=== PATIENT | male | born 1945 | race Caucasian/White ===

== ENCOUNTER 2018-04-24 12:30 | Inpatient (IN) | payer MEDICARE, BC ==
[2018-04-24] MEDS: ALBUTEROL SULFATE 2.5 MG/0.5 ML INH NEB SOLN NEB (15:14)
[2018-04-24 15:31] LABS: HEMATOCRIT 54.3 % (42.0-52.0); HEMOGLOBIN 18.8 g/dl (13.5-17.5); MEAN CORPUSCULAR HEMOGLOBIN 31.1 pg (27.0-33.0); MEAN CORPUSCULAR HGB CONC 34.6 g/dl (32.0-36.5); MEAN CORPUSCULAR VOLUME 89.8 fl (80.0-96.0); PLATELET COUNT, AUTOMATED 177 10^3/uL (150-450); RED BLOOD COUNT 6.05 10^6/uL (4.30-6.10); RED CELL DISTRIBUTION WIDTH 14.9 % (11.5-14.5); WHITE BLOOD COUNT 28.7 10^3/uL (4.0-10.0)
[2018-04-24 15:59] LABS: ALBUMIN 4.2 GM/DL (3.2-5.2); ALBUMIN/GLOBULIN RATIO 1.14 (1.00-1.93); ALKALINE PHOSPHATASE 66 U/L (45-117); ALT/SGPT 48 U/L (12-78); ANION GAP 9 MEQ/L (8-16); AST/SGOT 35 U/L (7-37); BILIRUBIN,DIRECT 0.3 MG/DL (0.0-0.2); BILIRUBIN,TOTAL 1.7 MG/DL (0.2-1.0); BLOOD UREA NITROGEN 18 MG/DL (7-18); CALCIUM LEVEL 9.7 MG/DL (8.8-10.2); CARBON DIOXIDE LEVEL 26 MEQ/L (21-32); CHLORIDE LEVEL 106 MEQ/L (98-107); CREATININE FOR GFR 1.87 MG/DL (0.70-1.30); GLOMERULAR FILTRATION RATE 37.8 (>42); GLUCOSE, FASTING 159 MG/DL (70-100); NT-PRO BNP 249 PG/ML (<125); POTASSIUM SERUM 4.2 MEQ/L (3.5-5.1); SODIUM LEVEL 141 MEQ/L (136-145); TOTAL PROTEIN 7.9 GM/DL (6.4-8.2)
[2018-04-24 16:05] LABS: POSITIVE DIFF POS FLAG; SUSPECT SAMPLE POS FLAG
[2018-04-24 16:06] LABS: ADD MANUAL DIFFER YES; DIFF SLIDE NUMBER 347
[2018-04-24 16:09] LABS: ATYPICAL LYMPH 1 % (0-5); BANDS 4 % (< 11); BASOPHILS 2 % (0-4); LYMPHOCYTES 1 % (16-52); MONOCYTES 5 % (0-8); NEUTROPHILS 87 % (35-75); TOXIC VACUOLATION 1+
[2018-04-24 16:11] LABS: PLATELET ESTIMATE NORMAL (NORMAL)
[2018-04-24] MEDS: NS 1,000 ML IV ×3 (16:21→22:31)
[2018-04-24] MEDS: methylPREDNISolone INJ 125 MG/2 ML VIAL (J2930) IV (16:42)
[2018-04-24] MEDS: AZITHROMYCIN INJ 500 MG, VIAL MATE ADAPTER 1 EACH in D5W 250 ML IV (16:42)
[2018-04-24] MEDS: cefTRIAXone SOD 2 GM in D5W MINI-BAG PLUS 50 ML IV (16:42)
[2018-04-24 16:50] LABS: LACTIC ACID SEPSIS PROTOCOL 3.3 MMOL/L (0.4-2.0)
[2018-04-24] MEDS ORDERED: GLUCOSE 4 GM CHEW TABLET PO (17:15)
[2018-04-24] MEDS ORDERED: GLUCAGON FOR INJ 1 MG VIAL (J1610) SC (17:15)
[2018-04-24] MEDS ORDERED: DEXTROSE 50% 50 ML SYRINGE IV (17:15)
[2018-04-24] MEDS ORDERED: ACETAMINOPHEN TAB 650MG DOSE (2X325MG) PO (17:15)
[2018-04-24 17:29] LABS: BEDSIDE GLUCOSE 183 MG/DL (83-110)
[2018-04-24] MEDS: ONDANSETRON 4MG/2ML VIAL (J2405) IV (17:29)
[2018-04-24] MEDS: HumaLOG INSULIN (NovoLOG) PER UNIT SC ×2 (17:34→21:03)
[2018-04-24] MEDS ORDERED: NITROGLYCERIN 0.4 MG SUBL TABLET SL (17:45)
[2018-04-24] MEDS ORDERED: AZITHROMYCIN INJ 500 MG, VIAL MATE ADAPTER 1 EACH in D5W 250 ML IV (18:00)
[2018-04-24] MEDS: ADVAIR HFA 230/21MCG INHALER INH (19:55)
[2018-04-24] MEDS: IPRATROPIUM 0.5MG/ALBUTEROL 2.5MG INH SOL UD 3ML (DUONEB)(J7620) NEB ×2 (19:55→23:43)
[2018-04-24] MEDS: METOCLOPRAMIDE 10 MG TAB PO (21:01)
[2018-04-24] MEDS: ATORVASTATIN 20 MG TAB PO (21:01)
[2018-04-24] MEDS: CETIRIZINE (ZyrTEC) 10 MG TAB PO (21:01)
[2018-04-24] MEDS: EZETIMIBE 10 MG TAB (ZETIA) PO (21:01)
[2018-04-24] MEDS: MULTIVITAMINS/MINERALS THERAP 1 TAB PO (21:02)
[2018-04-24 22:03] LABS: BEDSIDE GLUCOSE 251 MG/DL (83-110)
[2018-04-25 03:23] LABS: LACTIC ACID SEPSIS PROTOCOL 3.5 MMOL/L (0.4-2.0)
[2018-04-25] MEDS: IPRATROPIUM 0.5MG/ALBUTEROL 2.5MG INH SOL UD 3ML (DUONEB)(J7620) NEB ×7 (04:24→23:40)
[2018-04-25 06:09] LABS: HEMATOCRIT 40.6 % (42.0-52.0); MEAN CORPUSCULAR HEMOGLOBIN 30.8 pg (27.0-33.0); MEAN CORPUSCULAR HGB CONC 34.5 g/dl (32.0-36.5); MEAN CORPUSCULAR VOLUME 89.4 fl (80.0-96.0); PLATELET COUNT, AUTOMATED 158 10^3/uL (150-450); RED BLOOD COUNT 4.54 10^6/uL (4.30-6.10); RED CELL DISTRIBUTION WIDTH 14.9 % (11.5-14.5); WHITE BLOOD COUNT 25.6 10^3/uL (4.0-10.0)
[2018-04-25 06:33] LABS: ALBUMIN 2.8 GM/DL (3.2-5.2); ALKALINE PHOSPHATASE 47 U/L (45-117); ALT/SGPT 31 U/L (12-78); ANION GAP 10 MEQ/L (8-16); AST/SGOT 19 U/L (7-37); BILIRUBIN,TOTAL 0.7 MG/DL (0.2-1.0); BLOOD UREA NITROGEN 25 MG/DL (7-18); CALCIUM LEVEL 7.8 MG/DL (8.8-10.2); CARBON DIOXIDE LEVEL 21 MEQ/L (21-32); CHLORIDE LEVEL 111 MEQ/L (98-107); CREATININE FOR GFR 1.54 MG/DL (0.70-1.30); GLOMERULAR FILTRATION RATE 47.2 (>42); GLUCOSE, FASTING 237 MG/DL (70-100); MAGNESIUM LEVEL 1.7 MG/DL (1.8-2.4); POTASSIUM SERUM 4.4 MEQ/L (3.5-5.1); SODIUM LEVEL 142 MEQ/L (136-145); TOTAL PROTEIN 5.9 GM/DL (6.4-8.2)
[2018-04-25] MEDS: ADVAIR HFA 230/21MCG INHALER INH ×2 (07:49→20:25)
[2018-04-25] MEDS: methylPREDNISolone INJ 40 MG/1 ML VIAL (J2920) IV ×3 (08:18→20:23)
[2018-04-25] MEDS: RIVAROXABAN 20 MG TAB (XARELTO) PO (08:18)
[2018-04-25] MEDS: MULTIVITAMINS/MINERALS THERAP 1 TAB PO (08:18)
[2018-04-25] MEDS: EZETIMIBE 10 MG TAB (ZETIA) PO (08:18)
[2018-04-25] MEDS: HumaLOG INSULIN (NovoLOG) PER UNIT SC ×4 (08:20→22:02)
[2018-04-25] MEDS: NS 1,000 ML IV ×2 (08:20→09:13)
[2018-04-25] MEDS: MAG SULF 1GM/100ML (MAG RUN) 1 GM in APPROPRIATE DILUENT 1 EA IV (10:34)
[2018-04-25 11:04] LABS: LACTIC ACID SEPSIS PROTOCOL 4.1 MMOL/L (0.4-2.0)
[2018-04-25 11:33] LABS: BEDSIDE GLUCOSE 250 MG/DL (83-110)
[2018-04-25 14:47] LABS: LACTIC ACID SEPSIS PROTOCOL 4.3 MMOL/L (0.4-2.0)
[2018-04-25] MEDS: MAALOX 30 ML SUSP *UDC PO ×2 (15:01→20:22)
[2018-04-25] MEDS: cefTRIAXone SOD 1 GM in D5W MINI-BAG PLUS 50 ML IV (15:03)
[2018-04-25 16:49] LABS: REASON FOR REVIEW WBC/LEUKEMIA/BLAST; SLIDE REVIEW Report; SOURCE PERIPHERAL SMEAR
[2018-04-25 16:55] LABS: BEDSIDE GLUCOSE 224 MG/DL (83-110)
[2018-04-25] MEDS: AZITHROMYCIN INJ 500 MG, VIAL MATE ADAPTER 1 EACH in D5W 250 ML IV (17:10)
[2018-04-25] MEDS: ONDANSETRON 4MG/2ML VIAL (J2405) IV (18:29)
[2018-04-25] MEDS: FLUTICASONE PROP 0.05% NASAL SPRAY 16 GM (FLONASE) (18:45)
[2018-04-25] MEDS: chlorproMAZINE 25 MG TAB (Q0161) PO (18:46)
[2018-04-25 19:18] LABS: HEMATOCRIT 37.3 % (42.0-52.0); HEMOGLOBIN 12.6 g/dl (13.5-17.5); MEAN CORPUSCULAR HEMOGLOBIN 30.7 pg (27.0-33.0); MEAN CORPUSCULAR HGB CONC 33.8 g/dl (32.0-36.5); MEAN CORPUSCULAR VOLUME 90.8 fl (80.0-96.0); PLATELET COUNT, AUTOMATED 135 10^3/uL (150-450); RED BLOOD COUNT 4.11 10^6/uL (4.30-6.10); RED CELL DISTRIBUTION WIDTH 15.4 % (11.5-14.5); WHITE BLOOD COUNT 23.9 10^3/uL (4.0-10.0)
[2018-04-25 20:07] LABS: C REACTIVE PROTEIN QUANTITATIV 6.36 MG/DL (0.00-0.30)
[2018-04-25] MEDS: CETIRIZINE (ZyrTEC) 10 MG TAB PO (20:22)
[2018-04-25] MEDS: METOCLOPRAMIDE 10 MG TAB PO (20:23)
[2018-04-25] MEDS: ATORVASTATIN 20 MG TAB PO (20:23)
[2018-04-25 21:01] LABS: BEDSIDE GLUCOSE 269 MG/DL (83-110)
[2018-04-25] MEDS: PIPERACILLIN/TAZOBACTAM SOD 3.375 GM in D5W MINI-BAG PLUS 50 ML IV (21:51)
[2018-04-26] MEDS: PIPERACILLIN/TAZOBACTAM SOD 3.375 GM in D5W MINI-BAG PLUS 50 ML IV ×4 (03:10→20:28)
[2018-04-26] MEDS: IPRATROPIUM 0.5MG/ALBUTEROL 2.5MG INH SOL UD 3ML (DUONEB)(J7620) NEB ×5 (03:47→20:28)
[2018-04-26 06:26] LABS: HEMATOCRIT 36.2 % (42.0-52.0); HEMOGLOBIN 12.4 g/dl (13.5-17.5); MEAN CORPUSCULAR HEMOGLOBIN 30.8 pg (27.0-33.0); MEAN CORPUSCULAR HGB CONC 34.3 g/dl (32.0-36.5); PLATELET COUNT, AUTOMATED 141 10^3/uL (150-450); RED BLOOD COUNT 4.02 10^6/uL (4.30-6.10); RED CELL DISTRIBUTION WIDTH 15.3 % (11.5-14.5); WHITE BLOOD COUNT 21.9 10^3/uL (4.0-10.0)
[2018-04-26 06:49] LABS: ALBUMIN 2.8 GM/DL (3.2-5.2); ALBUMIN/GLOBULIN RATIO 0.97 (1.00-1.93); ALKALINE PHOSPHATASE 42 U/L (45-117); ALT/SGPT 27 U/L (12-78); ANION GAP 12 MEQ/L (8-16); AST/SGOT 20 U/L (7-37); BILIRUBIN,TOTAL 0.4 MG/DL (0.2-1.0); BLOOD UREA NITROGEN 30 MG/DL (7-18); CALCIUM LEVEL 8.4 MG/DL (8.8-10.2); CARBON DIOXIDE LEVEL 20 MEQ/L (21-32); CHLORIDE LEVEL 110 MEQ/L (98-107); CREATININE FOR GFR 1.71 MG/DL (0.70-1.30); GLOMERULAR FILTRATION RATE 41.9 (>42); GLUCOSE, FASTING 273 MG/DL (70-100); MAGNESIUM LEVEL 2.3 MG/DL (1.8-2.4); POTASSIUM SERUM 4.4 MEQ/L (3.5-5.1); SODIUM LEVEL 142 MEQ/L (136-145); TOTAL PROTEIN 5.7 GM/DL (6.4-8.2)
[2018-04-26] MEDS: ADVAIR HFA 230/21MCG INHALER INH ×2 (07:11→21:00)
[2018-04-26 08:17] LABS: C REACTIVE PROTEIN QUANTITATIV 3.74 MG/DL (0.00-0.30)
[2018-04-26] MEDS: methylPREDNISolone INJ 40 MG/1 ML VIAL (J2920) IV (08:21)
[2018-04-26] MEDS: MULTIVITAMINS/MINERALS THERAP 1 TAB PO (08:21)
[2018-04-26] MEDS: RIVAROXABAN 20 MG TAB (XARELTO) PO (08:21)
[2018-04-26] MEDS: EZETIMIBE 10 MG TAB (ZETIA) PO (08:21)
[2018-04-26] MEDS: HumaLOG INSULIN (NovoLOG) PER UNIT SC ×4 (08:22→21:00)
[2018-04-26 08:29] LABS: LACTIC ACID SEPSIS PROTOCOL 4.9 MMOL/L (0.4-2.0)
[2018-04-26] MEDS: FLUTICASONE PROP 0.05% NASAL SPRAY 16 GM (FLONASE) (09:49)
[2018-04-26] MEDS: NS 1,000 ML IV ×2 (11:29→20:28)
[2018-04-26 12:07] LABS: BEDSIDE GLUCOSE 281 MG/DL (83-110)
[2018-04-26] MEDS: chlorproMAZINE 25 MG TAB (Q0161) PO (14:01)
[2018-04-26 16:40] LABS: BEDSIDE GLUCOSE 254 MG/DL (83-110)
[2018-04-26] MEDS: MAALOX 30 ML SUSP *UDC PO (20:28)
[2018-04-26] MEDS: CETIRIZINE (ZyrTEC) 10 MG TAB PO (20:29)
[2018-04-26] MEDS: ATORVASTATIN 20 MG TAB PO (20:29)
[2018-04-26] MEDS: METOCLOPRAMIDE 10 MG TAB PO (20:29)
[2018-04-26] MEDS: predniSONE 20 MG TAB PO (20:29)
[2018-04-26 20:34] LABS: BEDSIDE GLUCOSE 221 MG/DL (83-110)
[2018-04-26] MEDS: LEVEMIR (INSULIN DETEMIR) 1 UNITS/0.01ML SC (21:07)
[2018-04-27] MEDS: IPRATROPIUM 0.5MG/ALBUTEROL 2.5MG INH SOL UD 3ML (DUONEB)(J7620) NEB ×7 (00:26→23:18)
[2018-04-27] MEDS: PIPERACILLIN/TAZOBACTAM SOD 3.375 GM in D5W MINI-BAG PLUS 50 ML IV ×2 (03:07→09:03)
[2018-04-27 06:16] LABS: HEMATOCRIT 36.3 % (42.0-52.0); HEMOGLOBIN 12.5 g/dl (13.5-17.5); MEAN CORPUSCULAR HEMOGLOBIN 30.7 pg (27.0-33.0); MEAN CORPUSCULAR HGB CONC 34.4 g/dl (32.0-36.5); MEAN CORPUSCULAR VOLUME 89.2 fl (80.0-96.0); PLATELET COUNT, AUTOMATED 144 10^3/uL (150-450); RED BLOOD COUNT 4.07 10^6/uL (4.30-6.10); RED CELL DISTRIBUTION WIDTH 15.6 % (11.5-14.5)
[2018-04-27 06:28] LABS: ALBUMIN 2.8 GM/DL (3.2-5.2); ALBUMIN/GLOBULIN RATIO 1.04 (1.00-1.93); ALKALINE PHOSPHATASE 41 U/L (45-117); ALT/SGPT 39 U/L (12-78); ANION GAP 6 MEQ/L (8-16); AST/SGOT 26 U/L (7-37); BILIRUBIN,TOTAL 0.6 MG/DL (0.2-1.0); BLOOD UREA NITROGEN 24 MG/DL (7-18); CALCIUM LEVEL 8.5 MG/DL (8.8-10.2); CARBON DIOXIDE LEVEL 25 MEQ/L (21-32); CHLORIDE LEVEL 110 MEQ/L (98-107); CREATININE FOR GFR 1.38 MG/DL (0.70-1.30); GLOMERULAR FILTRATION RATE 53.6 (>42); GLUCOSE, FASTING 205 MG/DL (70-100); MAGNESIUM LEVEL 2.1 MG/DL (1.8-2.4); POTASSIUM SERUM 4.4 MEQ/L (3.5-5.1); SODIUM LEVEL 141 MEQ/L (136-145); TOTAL PROTEIN 5.5 GM/DL (6.4-8.2)
[2018-04-27] MEDS: ADVAIR HFA 230/21MCG INHALER INH ×2 (07:39→19:25)
[2018-04-27] MEDS: RIVAROXABAN 20 MG TAB (XARELTO) PO (09:03)
[2018-04-27] MEDS: MULTIVITAMINS/MINERALS THERAP 1 TAB PO (09:03)
[2018-04-27] MEDS: EZETIMIBE 10 MG TAB (ZETIA) PO (09:03)
[2018-04-27] MEDS: predniSONE 20 MG TAB PO (09:03)
[2018-04-27] MEDS: HumaLOG INSULIN (NovoLOG) PER UNIT SC ×4 (09:04→21:00)
[2018-04-27 11:56] LABS: BEDSIDE GLUCOSE 209 MG/DL (83-110)
[2018-04-27 17:02] LABS: BEDSIDE GLUCOSE 226 MG/DL (83-110)
[2018-04-27] MEDS: LevoFLOXacin 500 MG TABLET PO (17:52)
[2018-04-27 20:54] LABS: BEDSIDE GLUCOSE 180 MG/DL (83-110)
[2018-04-27] MEDS: ATORVASTATIN 20 MG TAB PO (21:21)
[2018-04-27] MEDS: LEVEMIR (INSULIN DETEMIR) 1 UNITS/0.01ML SC (21:22)
[2018-04-27] MEDS: CETIRIZINE (ZyrTEC) 10 MG TAB PO (21:23)
[2018-04-27] MEDS: ONDANSETRON 4MG/2ML VIAL (J2405) IV (21:25)
[2018-04-27] MEDS: MORPHINE 4 MG/ML 1ML VIAL/SYRINGE (J2270) IV (21:26)
[2018-04-28] MEDS: IPRATROPIUM 0.5MG/ALBUTEROL 2.5MG INH SOL UD 3ML (DUONEB)(J7620) NEB ×2 (03:40→07:52)
[2018-04-28 06:13] LABS: HEMATOCRIT 38.7 % (42.0-52.0); HEMOGLOBIN 13.5 g/dl (13.5-17.5); MEAN CORPUSCULAR HEMOGLOBIN 30.8 pg (27.0-33.0); MEAN CORPUSCULAR HGB CONC 34.9 g/dl (32.0-36.5); MEAN CORPUSCULAR VOLUME 88.4 fl (80.0-96.0); PLATELET COUNT, AUTOMATED 146 10^3/uL (150-450); RED BLOOD COUNT 4.38 10^6/uL (4.30-6.10); RED CELL DISTRIBUTION WIDTH 14.9 % (11.5-14.5)
[2018-04-28 06:30] LABS: ALBUMIN 2.9 GM/DL (3.2-5.2); ALBUMIN/GLOBULIN RATIO 0.97 (1.00-1.93); ALKALINE PHOSPHATASE 50 U/L (45-117); ALT/SGPT 59 U/L (12-78); ANION GAP 4 MEQ/L (8-16); AST/SGOT 52 U/L (7-37); BILIRUBIN,TOTAL 0.9 MG/DL (0.2-1.0); BLOOD UREA NITROGEN 22 MG/DL (7-18); CALCIUM LEVEL 9.1 MG/DL (8.8-10.2); CARBON DIOXIDE LEVEL 30 MEQ/L (21-32); CHLORIDE LEVEL 104 MEQ/L (98-107); CREATININE FOR GFR 1.18 MG/DL (0.70-1.30); GLOMERULAR FILTRATION RATE > 60.0 (>42); GLUCOSE, FASTING 103 MG/DL (70-100); MAGNESIUM LEVEL 2.3 MG/DL (1.8-2.4); SODIUM LEVEL 138 MEQ/L (136-145); TOTAL PROTEIN 5.9 GM/DL (6.4-8.2)
[2018-04-28 07:19] LABS: C REACTIVE PROTEIN QUANTITATIV 0.64 MG/DL (0.00-0.30)
[2018-04-28] MEDS: HumaLOG INSULIN (NovoLOG) PER UNIT SC (07:30)
[2018-04-28] MEDS: ADVAIR HFA 230/21MCG INHALER INH (07:52)
[2018-04-28] MEDS: EZETIMIBE 10 MG TAB (ZETIA) PO (09:56)
[2018-04-28] MEDS: predniSONE 20 MG TAB PO (09:56)
[2018-04-28] MEDS: MULTIVITAMINS/MINERALS THERAP 1 TAB PO (09:56)
[2018-04-28] MEDS: RIVAROXABAN 20 MG TAB (XARELTO) PO (09:56)
== END 2018-04-28 11:28 | disposition home or self-care (01) | DRG 194 ==
LOC: M ED 12:30 → M ED INP 17:01 → M MSPAV 20:25
DX: J18.9 Pneumonia, unspecified organism (principal); E87.2 Acidosis; J45.901 Unspecified asthma with (acute) exacerbation; D71 Functional disorders of polymorphonuclear neutrophils; E78.5 Hyperlipidemia, unspecified; E11.9 Type 2 diabetes mellitus without complications; N18.9 Chronic kidney disease, unspecified; I49.5 Sick sinus syndrome; Z95.0 Presence of cardiac pacemaker; Z79.01 Long term (current) use of anticoagulants; Z79.899 Other long term (current) drug therapy

== ENCOUNTER → 2018-05-26 | Outpatient (CLI) | payer MEDICARE, BC | LOC: M RAD 16:44 | DX: J45.909 Unspecified asthma, uncomplicated (principal) | CPT/HCPCS: 71046 ==

== ENCOUNTER → 2018-09-13 | Outpatient (CLI) | payer MEDICARE, BC | LOC: M RAD 15:03 | DX: J45.901 Unspecified asthma with (acute) exacerbation (principal); J45.909 Unspecified asthma, uncomplicated | CPT/HCPCS: 71046 ==